=== PATIENT | female | born 1950 | race African-American/Black ===

== ENCOUNTER 2017-07-09 10:41 | Emergency (ER) | payer MEDICARE, OTHER ==
[~2017-07-09] VITALS: Ht 165.1 cm; Wt 80.0 kg
[2017-07-09] MEDS ORDERED: INSULIN (10:52)
[2017-07-09] MEDS ORDERED: METF10002 PO (10:53)
[2017-07-09] MEDS ORDERED: METO-396 PO (10:54)
[2017-07-09] MEDS ORDERED: SODIUM CHLORIDE 0.9% 1,000 ML IV ONE (11:26)
[2017-07-09 11:46] LABS: BASOPHILS % 0.5 % (0.0-2.0); EOSINOPHILS % 0.6 % (0.0-5.0); HEMATOCRIT. 35.6 % (36.0-48.0); LYMPHOCYTES % 22.2 % (20.0-50.0); MEAN CORPUSCULAR HEMOGLOBIN 29.4 pg (28.0-32.0); MEAN PLATELET VOLUME 10.5 fl (7.4-10.4); MONOCYTES % 6.5 % (2.0-8.0); NEUTROPHILS % 70.2 % (40.0-76.0); PLATELET 160 x1000/uL (130-400); RED BLOOD CELL COUNT 4.09 mill/uL (4.2-5.4); RED CELL DISTRIBUTION WIDTH 14.1 % (11.6-14.6)
[2017-07-09 11:51] LABS: CHLORIDE 108 mEq/L (98-107)
[2017-07-09 12:19] LABS: PROTHROMBIN TIME 10.2 sec (9.4-11.6)
[2017-07-09 15:29] LABS: CLARITY URINE CLEAR (CLEAR); COLOR URINE YELLOW (YELLOW); KETONES URINE NEGATIVE (NEGATIVE); LEUKOCYTE ESTERASE URINE TRACE (NEGATIVE); NITRITE URINE NEGATIVE (NEGATIVE); OCCULT BLOOD URINE NEGATIVE (NEGATIVE); PROTEIN URINE NEGATIVE (NEGATIVE); SPECIFIC GRAVITY URINE 1.018 (1.005-1.030); UROBILINOGEN URINE 0.2 E.U./dL (0.2-1.0)
[2017-07-09 17:02] VITALS: BP 162/92
== END 2017-07-09 17:11 | disposition home or self-care (01) ==
LOC: ER 11:19
DX: R53.1 Weakness (principal); N30.00 Acute cystitis without hematuria; R42 Dizziness and giddiness; E11.9 Type 2 diabetes mellitus without complications; Z79.4 Long term (current) use of insulin; Z88.5 Allergy status to narcotic agent
CPT/HCPCS: 36415; 70450; 71045; 80053; 81003; 82962; 84484; 85025; 85610; 93005; 96360; 96361; 99285; J7030